=== PATIENT | female | born 1955 | race Caucasian/White ===

== ENCOUNTER 2017-07-13 14:25 | Emergency (ER) | payer OTHER ==
[2017-07-13 14:46] VITALS: RESP 16; O2SAT 96
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
[2017-07-13 16:28] VITALS: BP 147/74; PULSE 75; TEMP 97.9
== END 2017-07-13 16:28 | disposition home or self-care (01) ==
DX: S16.1XXA Strain of muscle, fascia and tendon at neck level, initial encounter (principal); S00.83XA Contusion of other part of head, initial encounter; I10 Essential (primary) hypertension; Z85.3 Personal history of malignant neoplasm of breast; W01.198A Fall on same level from slipping, tripping and stumbling with subsequent striking against other object, initial encounter